=== PATIENT | female | born 1980 | race Two or more races ===

== ENCOUNTER 2020-12-07 11:45 | Outpatient (CLI) | payer BC | END 2020-12-07 23:59 | disposition home or self-care (01) | LOC: LAB 11:45 | PROVIDERS: ATTEND Internal Medicine Gastroenterology | DX: Z01.812 Encounter for preprocedural laboratory examination (principal); Z20.822 Contact with and (suspected) exposure to COVID-19 | CPT/HCPCS: 87426; C9803; U0003 ==

== ENCOUNTER 2020-12-13 11:35 | Day surgery (SDC) | payer BC ==
[2020-12-13] MEDS ORDERED: FENTANYL PF 100MCG/2ML AMPUL ONE (12:12)
== END 2020-12-13 14:15 | disposition home or self-care (01) ==
LOC: DS 11:35
PROVIDERS: ATTEND Internal Medicine Gastroenterology
DX: K29.70 Gastritis, unspecified, without bleeding (principal); Z98.84 Bariatric surgery status; R63.4 Abnormal weight loss; E66.01 Morbid (severe) obesity due to excess calories; I10 Essential (primary) hypertension; G47.33 Obstructive sleep apnea (adult) (pediatric); Z99.89 Dependence on other enabling machines and devices; Z79.899 Other long term (current) drug therapy
CPT/HCPCS: 43239; 88305; 88313; 88342; J2704; J3010